=== PATIENT | female | born 1975 | race Two or more races ===

== ENCOUNTER 2017-08-02 14:13 | Emergency (ER) | payer MEDICAID ==
[~2017-08-02] VITALS: Ht 175.3 cm; Wt 89.0 kg
[2017-08-02] MEDS ORDERED: SODIUM CHLORIDE 0.9% 1,000ML IVBOLUS ONE ×2 (14:30→15:30)
[2017-08-02] MEDS ORDERED: SODIUM CHLORIDE FLUSH 10ML SYR IVF ONE (14:30)
[2017-08-02 14:39] LABS: PH, VENOUS 7.373 pH (7.320-7.420)
[2017-08-02 14:42] LABS: HEMATOCRIT 34.8 % (34.6-47.8); HEMOGLOBIN 11.5 g/dL (11.7-16.4); WHITE BLOOD COUNT 6.3 x10^3/uL (3.4-10)
[2017-08-02 14:50] LABS: ASPARTATE AMINO TRANSFERASE 8 U/L (15-37); BLOOD UREA NITROGEN 11 mg/dL (7-18)
[2017-08-02] MEDS ORDERED: PLEASE ENTER HEIGHT AND WEIGHT MC SCH (15:00)
[2017-08-02] MEDS ORDERED: PLEASE ENTER ALLERGIES MC SCH ×2 (15:00)
[2017-08-02] MEDS ORDERED: INSULIN REGULAR 100 UNITS/ML, 3ML VIAL SQ-INSULIN SCH (15:00)
[2017-08-02] MEDS ORDERED: INSULIN REGULAR 100 UNITS/ML, 3ML VIAL ONE (15:03)
[2017-08-02 16:09] LABS: PATH.CAST-FLAG NOT PRESENT; SPERM-FLAG NOT PRESENT; SRC-FLAG NOT PRESENT; XTAL-FLAG NOT PRESENT; YLC-FLAG NOT PRESENT
[2017-08-02 18:26] VITALS: BP 136/78
== END 2017-08-02 18:28 | disposition home or self-care (01) ==
LOC: ED 15:50
DX: E11.65 Type 2 diabetes mellitus with hyperglycemia (principal); F32.9 Major depressive disorder, single episode, unspecified; F15.10 Other stimulant abuse, uncomplicated
CPT/HCPCS: 36415; 80053; 81001; 82010; 82803; 82962; 85025; 87077; 87086; 87186; 96360; 96372; 99284; J7030